=== PATIENT | female | born 1985 | race Caucasian/White ===

== ENCOUNTER 2019-10-30 08:00 | Outpatient (CLI) | payer BC ==
[2019-10-30 09:57] LABS: MUDS CUTOFF CONCENTRATIONS CUTOFF CONC BELOW:
[2019-10-30 13:59] LABS: BASOPHILS % (AUTO) 0.5 %; EOSINOPHILS # (AUTO) 0.1 10^3/uL (0.0-0.7); EOSINOPHILS % (AUTO) 1.2 %; HGB - HEMOGLOBIN 12.8 g/dL (12.0-16.0); LYMPHOCYTES # (AUTO) 1.9 10^3/uL (1.5-3.5); LYMPHOCYTES % (AUTO) 31.1 %; MEAN CORPUSCULAR HEMOGLOBIN 33.9 pg (27.0-31.0); MEAN CORPUSCULAR HGB CONC 32.6 g/dL (32.0-36.0); MEAN PLATELET VOLUME 11.8 fL (7.9-10.8); MONOCYTES # (AUTO) 0.5 10^3/uL (0.0-1.0); NEUTROPHILS # (AUTO) 3.5 10^3/uL (1.5-6.6); NEUTROPHILS % (AUTO) 57.9 %; PLT - PLATELET COUNT 258 10^3/uL (130-450); RED BLOOD COUNT 3.78 10^6/uL (4.20-5.40); RED CELL DISTRIBUTION WIDTH 12.8 % (12.0-15.0)
[2019-10-30 15:02] LABS: BILIRUBIN,URINE NEGATIVE (NEGATIVE); GLUCOSE, URINE (UA) NEGATIVE (NEGATIVE); KETONES,URINE (UA) 15 mg/dL (NEGATIVE); LEUKOCYTE ESTERASE, URINE SMALL (NEGATIVE); NITRITE,URINE NEGATIVE (NEGATIVE); OCCULT BLOOD,URINE NEGATIVE (NEGATIVE); PROTEIN,URINE NEGATIVE (NEGATIVE); UROBILINOGEN,URINE 0.2 (NORMAL) E.U./dL (NORMAL)
[2019-10-30 15:05] LABS: CLARITY,URINE CLEAR (CLEAR)
[2019-10-30 15:09] LABS: AMPHETAMINE SCREEN,URINE NEGATIVE (NEGATIVE); BENZODIAZEPINES SCREEN, URINE NEGATIVE (NEGATIVE); COCAINE SCREEN URINE NEGATIVE (NEGATIVE); METHADONE SCREEN, URINE NEGATIVE (NEGATIVE); METHAMPHETAMINES SCREEN, URINE NEGATIVE (NEGATIVE); OPIATE SCREEN, URINE NEGATIVE (NEGATIVE); OXYCODONE SCREEN, URINE NEGATIVE (NEGATIVE); PROPOXYPHENE SCREEN, URINE NEGATIVE (NEGATIVE); TRICYCLIC ANTIDEPRESSANT,URINE NEGATIVE (NEGATIVE)
[2019-10-30 15:40] LABS: AMORPHOUS SEDIMENT,UR Few /LPF; BACTERIA,URINE Rare /HPF (None Seen); RBC,URINE 0-5 /HPF (0-5); SQUAMOUS EPITHELIAL CELL,UR FEW Squamous (<= Few)
[2019-10-30 20:54] LABS: TRICHOMONAS VAGINALIS DNA NEGATIVE (NEGATIVE)
[2019-10-31 10:14] LABS: HIV AG/AB 4TH GEN NON-REACTIVE (NON-REACTIVE)
[2019-10-31 12:10] LABS: HEPATITIS C ANTIBODY NON-REACTIVE (NON-REACTIVE)
[2019-10-31 12:11] LABS: HEPATITIS B SURFACE ANTIGEN NON-REACTIVE (NON-REACTIVE)
== END 2019-10-30 23:59 | disposition home or self-care (01) ==
LOC: LAB.WCP 08:00
PROVIDERS: ATTEND Advanced Practice Midwife
DX: Z34.90 Encounter for supervision of normal pregnancy, unspecified, unspecified trimester (principal); Z36.8A Encounter for antenatal screening for other genetic defects
CPT/HCPCS: 36415; 80306; 81001; 81599; 85025; 86592; 86762; 86803; 86850; 86900; 86901; 87086; 87340; 87389; 87491; 87591; 87661

== ENCOUNTER 2019-11-01 09:35 | Outpatient (CLI) | payer BC ==
--- NOTE | 2019-11-01 12:08 | Ultrasound Report ---
Reason: POSITIVE TEST Procedure Date: 11/01/2019 Accession Number: [id number] / [id number] Procedure: US - OB First Trimester CPT Code: Final Report FULL RESULT: PROCEDURE: OB First Trimester INDICATIONS: POSITIVE TEST OUTSIDE/PRIOR DATING DATA: Last menstrual period (LMP): 09/24/2019. LMP-based estimated date of delivery (ELIE): 06/30/2020. First dating scan (date and location): 11/01/2019. Estimated date of delivery (ELIE) from first dating scan: 06/30/2020. TECHNIQUE: Real-time scanning was performed of the fetus and maternal pelvic organs, with image documentation. COMPARISON: None. FINDINGS: Multiple grayscale and color images of the pelvis were acquired. Visualized portions of the bilateral kidneys appear within normal limits. Trace free fluid is noted in the pelvis. The maternal ovaries were not imaged. However, there is a 3.7 cm cystic structure superior to the uterus, unable to definitively characterize whether it originates from the ovary versus the uterus. Imaging limited secondary to patient imaging characteristics. Embryo: There is an intrauterine gestational sac measuring approximately 0.7 cm which correlates with approximately 5 weeks and 3 days gestational age. No cardiac activity visualized on today's exam. No perigestational hemorrhage. No yolk sac identified. No pole visualized. Measurement variability in dating: +/- 4 weeks by LMP, +/- 7 days by mean sac diameter (use before 6 weeks gestation if crown-rump length not able to be measured), +/- 5 days by crown-rump length (6-12 weeks gestation). IMPRESSION: 1. Single intrauterine gestation with an estimated sonographic gestational age of approximately 5 weeks and 3 days. No pole or cardiac activity visualized on today's examination. This is likely related to early gestational age and clinical follow-up with short interval follow-up imaging is recommended. 2. A 3.7 cm cystic structure superior to the uterus which is incompletely characterized secondary to patient imaging characteristics. It is difficult to determine whether its origin is off the ovary or the uterus. Recommend attention to this area on follow-up imaging. Reviewed by: Stevan Gonzalez MD on 11/01/2019 12:07 PM PDT Approved by: Stevan Gonzalez MD on 11/01/2019 12:07 PM PDT Station ID: [id number]
--- NOTE | 2019-11-01 12:11 | Ultrasound Report ---
Reason: POSITIVE TEST Procedure Date: 11/01/2019 Accession Number: [id number] / [id number] Procedure: US - OB Transvaginal CPT Code: Final Report FULL RESULT: PROCEDURE: OB First Trimester INDICATIONS: POSITIVE TEST OUTSIDE/PRIOR DATING DATA: Last menstrual period (LMP): 09/24/2019. LMP-based estimated date of delivery (ELIE): 06/30/2020. First dating scan (date and location): 11/01/2019. Estimated date of delivery (ELIE) from first dating scan: 06/30/2020. TECHNIQUE: Real-time scanning was performed of the fetus and maternal pelvic organs, with image documentation. COMPARISON: None. FINDINGS: Multiple grayscale and color images of the pelvis were acquired. Visualized portions of the bilateral kidneys appear within normal limits. Trace free fluid is noted in the pelvis. The maternal ovaries were not imaged. However, there is a 3.7 cm cystic structure superior to the uterus, unable to definitively characterize whether it originates from the ovary versus the uterus. Imaging limited secondary to patient imaging characteristics. Embryo: There is an intrauterine gestational sac measuring approximately 0.7 cm which correlates with approximately 5 weeks and 3 days gestational age. No cardiac activity visualized on today's exam. No perigestational hemorrhage. No yolk sac identified. No pole visualized. Measurement variability in dating: +/- 4 weeks by LMP, +/- 7 days by mean sac diameter (use before 6 weeks gestation if crown-rump length not able to be measured), +/- 5 days by crown-rump length (6-12 weeks gestation). IMPRESSION: 1. Single intrauterine gestation with an estimated sonographic gestational age of approximately 5 weeks and 3 days. No pole or cardiac activity visualized on today's examination. This is likely related to early gestational age and clinical follow-up with short interval follow-up imaging is recommended. 2. A 3.7 cm cystic structure superior to the uterus which is incompletely characterized secondary to patient imaging characteristics. It is difficult to determine whether its origin is off the ovary or the uterus. Recommend attention to this area on follow-up imaging. Reviewed by: Stevan Gonzalez MD on 11/01/2019 12:09 PM PDT Approved by: Stevan Gonzalez MD on 11/01/2019 12:09 PM PDT Station ID: [id number]
== END 2019-11-01 09:36 | disposition home or self-care (01) ==
LOC: DI 09:35
PROVIDERS: ATTEND Advanced Practice Midwife
DX: Z32.01 Encounter for pregnancy test, result positive (principal); R93.89 Abnormal findings on diagnostic imaging of other specified body structures
CPT/HCPCS: 76801; 76817

== ENCOUNTER 2019-11-02 07:00 | Outpatient (CLI) | payer BC ==
[2019-11-02 18:28] LABS: BILIRUBIN,URINE NEGATIVE (NEGATIVE); GLUCOSE, URINE (UA) NEGATIVE (NEGATIVE); KETONES,URINE (UA) NEGATIVE (NEGATIVE); LEUKOCYTE ESTERASE, URINE NEGATIVE (NEGATIVE); NITRITE,URINE NEGATIVE (NEGATIVE); OCCULT BLOOD,URINE NEGATIVE (NEGATIVE); PROTEIN,URINE NEGATIVE (NEGATIVE); UROBILINOGEN,URINE 0.2 (NORMAL) E.U./dL (NORMAL)
[2019-11-02 18:43] LABS: BACTERIA,URINE None Seen /HPF (None Seen); CLARITY,URINE CLEAR (CLEAR); RBC,URINE None Seen /HPF (0-5); SQUAMOUS EPITHELIAL CELL,UR NONE SEEN (<= Few)
== END 2019-11-02 23:59 | disposition home or self-care (01) ==
LOC: LAB.WCP 07:00
PROVIDERS: ATTEND Advanced Practice Midwife
DX: Z34.90 Encounter for supervision of normal pregnancy, unspecified, unspecified trimester (principal)
CPT/HCPCS: 81001; 87086

== ENCOUNTER 2020-05-29 13:21 | Outpatient (CLI) | payer MEDICAID | END 2020-05-29 13:22 | disposition home or self-care (01) | LOC: COV 13:21 | PROVIDERS: ATTEND Family Medicine | DX: Z20.828 Contact with and (suspected) exposure to other viral communicable diseases (principal) ==